=== PATIENT | male | born 1985 | race Caucasian/White ===

== ENCOUNTER 2017-08-24 19:17 | Emergency (ER) | payer BC, MEDICAID ==
--- NOTE | 2017-08-24 19:46 | Emergency Department Record ---
History of Present Illness - General Chief Complaint: Dizziness Stated Complaint: DIZZINESS Time Seen by Provider: 08/24/17 19:39 Source: Patient Mode of Arrival: Wheelchair Limitations: No limitations - History of Present Illness Initial Comments: 31 yo male presents with a concern about his blood pressure and dizziness. He states he has a history of HTN. He has been without a doctor for about one year. During that time period he has not had been on any medication. He report a long history of migraines. The last six months his migraines are occurring more frequent and taking longer to recover. He had a migraine on Tuesday. He has felt dizziness on an off since then. He checked his BP at home. It was 150/100. No vision changes, speech changes, coordination changes , weakness, numbness. No current PCP. MD Complaint: Dizziness Onset/Timin -: Days(s) Timing: Gradual onset Description: "Room spinning" History of Same: Yes History of Trauma: No Severity: Mild Improves With: Remaining still Worsens With: Other (elevated BP) Associated Symptoms: Denies other symptoms - [place] Coma Scale Eye Response: (4) Open spontaneously Motor Response: (6) Obeys commands Verbal Response: (5) Oriented [place] Total: 15 - Symptoms of Stroke Symptoms of stroke: Dizziness - Related Data Previous Rx's Medication Instructions Recorded Amoxicillin 500Mg Capsule [Amoxil] 500 mg PO TID #30 tab 08/24/17 Hydrochlorothiazide [Hctz] 25 mg PO DAILY #30 tablet 08/24/17 Allergies Allergy/AdvReac Type Severity Reaction Status Date / Time No Known Drug Allergies Allergy Unverified 05/12/16 20:03 Travel Screening - Travel/Exposure Within Last 30 Days Have you traveled within the last 30 days?: No - Travel/Exposure Within Last Year Have you traveled outside the [place] in the last year?: No - Additonal Travel Details Have you been exposed to anyone with a communicable illness?: No - Travel Symptoms Symptom Screening: None Review of Systems Constitutional: Denies: Chills, Fever, Malaise, Weakness Eyes: Denies: Eye discharge, Eye pain, Photophobia, Vision change ENT: Denies: Congestion, Throat pain Respiratory: Denies: Cough, Dyspnea, Hemoptysis, Stridor, Wheezes Cardiovascular: Denies: Chest pain, Palpitations, Syncope Endocrine: Denies: Fatigue, Polydipsia, Polyuria Gastrointestinal: Denies: Abdominal pain, Diarrhea, Nausea, Vomiting Genitourinary: Denies: Dysuria, Frequency, Hematuria Musculoskeletal: Denies: Arthralgia, Back pain, Joint swelling, Myalgia, Neck pain Skin: Denies: Bruising, Change in color, Rash Neurological: Reports: As per HPI, Headache, Vertigo. Denies: Abnormal gait, Confusion, Numbness, Paresthesias, Seizure, Tingling, Tremors, Weakness Psychiatric: Denies: Anxiety Hematological/Lymphatic: Denies: Easy bleeding, Easy bruising, Swollen glands Past Medical History - SOCIAL HISTORY Smoking Status: Current every day smoker Alcohol Use: None Drug Use: Occasional Drug Use Detail:: Marijuana - RESPIRATORY Hx Respiratory Disorders: No - CARDIOVASCULAR Hx Cardio Disorders: No - NEURO Hx Neuro Disorders: Yes Hx Headaches: Yes - GI Hx GI Disorders: No - Hx Genitourinary Disorders: No - ENDOCRINE Hx Endocrine Disorders: No - MUSCULOSKELETAL Hx Musculoskeletal Disorders: No - PSYCH Hx Psych Problems: No - HEMATOLOGY/ONCOLOGY Hx Hematology/Oncology Disorders: No Family Medical History Any Significant Family History?: Yes Family Hx Comment (NOT TO BE USED IN PLACE OF ITEMS BELOW): migraines diabetes Physical Exam - General General Appearance: Alert, Oriented x3, Cooperative, No acute distress, Other ( Well appearing, well spoken, appears comfortable) Limitations: No limitations - Head Head exam: Normal inspection - Eye Eye exam: Normal appearance, PERRL, EOMI. negative: Conjunctival injection, Nystagmus, Periorbital swelling, Scleral icterus - ENT ENT exam: Normal exam, Mucous membranes moist, Normal orophraynx Ear exam: Normal external inspection Nasal Exam: Normal inspection Mouth exam: Normal external inspection Teeth exam: Normal inspection Throat exam: Normal inspection - Neck Neck exam: Normal inspection, Full ROM. negative: Lymphadenopathy, Tenderness - Respiratory Respiratory exam: Normal lung sounds bilaterally. negative: Respiratory distress - Cardiovascular Cardiovascular Exam: Regular rate, Normal rhythm, Normal heart sounds Peripheral Pulses: 2+: Radial (R), Radial (L) - GI/Abdominal GI/Abdominal exam: Soft. negative: Tenderness - Rectal Rectal exam: Deferred - exam: Deferred - Extremities Extremities exam: Normal inspection, Full ROM, Normal capillary refill. negative: Tenderness - Back Back exam: Reports: Normal inspection, Full ROM. Denies: Muscle spasm, Rash noted, Tenderness - Neurological Neurological exam: Alert, CN II-XII intact, Normal gait, Oriented X3, Reflexes normal, Other (No PND, normal FTN, No ataxia, No nystagmus, ). negative: Altered, Motor sensory deficit - Psychiatric Psychiatric exam: Normal affect, Normal mood. negative: Agitated, Anxious - Skin Skin exam: Dry, Intact, Normal color, Warm Course Vital Signs 08/24/17 19:33 Temperature 97.6 F Pulse Rate [ 80 Pulse Ox Probe] Respiratory 16 Rate Blood Pressure 148/118 [Left Arm] Pulse Ox 98 - Reevaluation(s) Reevaluation #1: EKG 1942 NSR, rate 73, intervals normal, axis normal, ST normal. Normal EKG. 08/24/17 19:48 The labs were reviewed No acute changes The HCT was negative for acute changes, multiple area of chronic inflammatory changes of the sinuses The patient is doing well, no symptoms. Normal examination His BP medication will be refilled as well as referral to a PCP Medical Decision Making - Lab Data Result diagrams: 08/24/17 19:55 08/24/17 19:55 Disposition Disposition: Discharge Clinical Impression: Migraine Qualifiers: Migraine type: unspecified Status migrainosus presence: without status migrainosus Intractability: not intractable Qualified Code(s): G43.909 - Migraine, unspecified, not intractable, without status migrainosus Sinusitis Qualifiers: Sinusitis location: frontal Chronicity: chronic Qualified Code(s): J32.1 - Chronic frontal sinusitis Disposition: Home, Self-Care Condition: (1) Good Instructions: Dizziness (ED), Sinusitis (ED), Migraine Headache (ED) Additional Instructions: Call to get a new family doctor Restart your blood pressure medication Return if you have any return or worsening of symptoms or concerns. Prescriptions: Amoxicillin 500Mg Capsule [Amoxil] 500 mg PO TID #30 tab Hydrochlorothiazide [Hctz] 25 mg PO DAILY #30 tablet Referrals: MIGDALIA WARREN [MEDICAL DOCTOR] - Forms: Patient Portal Access Time of Disposition: 20:50 Quality - Quality Measures Quality Measures: N/A - Blood Pressure Screening Does Patient Have Any of the Following: Active Dx of HTN Blood Pressure Classification: Hypertensive Reading Systolic Measurement: 142 Diastolic Measurement: 99 Screening for High Blood Pressure: Patient Exclusion, Hx of HTN [[id number]]
[2017-08-24 20:02] LABS: BASO % 0.2 % (0-6); EOS % 2.9 % (0-6); GRAN % 59.5 % (47-80); HEMATOCRIT 46.5 % (42.0-52.0); HEMOGLOBIN 16.1 gm/dl (14.0-18.0); LYMPH % 30.8 % (16-45); MEAN CORPUSCULAR HEMOGLOBIN 29.8 pg (27-33); MEAN CORPUSCULAR HGB CONC 34.6 g/dl (32-36); MONO % 6.6 % (0-9); PLATELET COUNT 240 K/uL (130-400); RED BLOOD COUNT 5.41 M/uL (4.40-5.70); RED CELL DISTRIBUTION WIDTH 13.6 % (11.5-14.5); WHITE BLOOD COUNT W/O DIFF 10.8 K/uL (4.2-12.2)
[2017-08-24 20:15] LABS: BLOOD UREA NITROGEN 12 mg/dL (6-20); CREATININE 0.8 mg/dL (0.7-1.2); EST GLOMERULAR FILTRATION RATE > 60 mL/min
[2017-08-24 20:16] LABS: TOTAL PROTEIN 7.3 g/dL (6.6-8.7)
[2017-08-24 20:18] LABS: GLUCOSE,RANDOM 98 mg/dL (74-109)
[2017-08-24 20:21] LABS: ALB/GLOB RATIO 1.9 (1.1-1.8); ALBUMIN 4.8 g/dL (4.0-5.0); ALKALINE PHOSPHATASE 65 U/L (40-129); ALT/SGPT 44 U/L (<41); AST/SGOT 25 U/L (10.0-50.0)
[2017-08-24 20:32] LABS: THYROID STIMULATING HORMONE 1.23 uIU/mL (0.270-4.20)
--- NOTE | 2017-08-25 21:13 | CT SCAN REPORT ---
EXAM: CT SCAN HEAD WO CONTRAST HISTORY: DIZZINESS, HEADACHE. TECHNIQUE: Helical CT scan of the head obtained without intravenous contrast. COMPARISON: None. FINDINGS: There is no evidence of hemorrhage, extraaxial fluid collection, or major vessel infarction. Yañez-white matter differentiation is maintained. Ventricles are normal. Basal cisterns are patent. No mass effect or midline shift. Calvarium is intact. Paranasal sinuses show mucosal thickening of the left inferior frontal sinus and ethmoid air cells. Middle ear cavities are well aerated. IMPRESSION: 1. NO ACUTE INTRACRANIAL ABNORMALITY. 2. CHRONIC INFLAMMATORY CHANGES IN THE LEFT FRONTAL AND ETHMOID SINUSES. JOB NUMBER: [id number] MTDD
== END 2017-08-24 21:01 | disposition home or self-care (01) ==
LOC: ER 19:17
DX: G43.909 Migraine, unspecified, not intractable, without status migrainosus (principal); J32.1 Chronic frontal sinusitis; R42 Dizziness and giddiness; I10 Essential (primary) hypertension; F17.210 Nicotine dependence, cigarettes, uncomplicated
CPT/HCPCS: 70450; 80053; 84443; 85025; 93005; 93010; 99284